=== PATIENT | male | born 1950 | race Caucasian/White ===

== ENCOUNTER 2016-10-07 13:16 | Day surgery (SDC) | payer MEDICARE ==
[~2016-10-07] VITALS: Ht 177.8 cm; Wt 82.0 kg
--- NOTE | 2016-10-07 07:32 | PCM.HPANE ---
Patient Data Surgeon Admitting Provider: Attending Provider:Brendon Nair MD Primary Care Physician:Catarina Canada MD Other Provider:Chas Acevedo Anesthesia Reason for Visit Screening, Hepatic Cirrhosis Ht/WT & BMI Body Mass Index Allergies Coded Allergies: WINIFRED Inhibitors (Verified Adverse Reaction, Unknown, cough, 07/21/15) Past Anesthesia History Anesthesia History: Denies:: Abnormal Airway, Anesthesia Reactions, Difficult Intubation, Fam Anesthesia Reaction, Malignant Hyperthermia Diabetes History Hx Diabetes?: Yes (Diet controlled DM) MRSA MRSA: No Medications Active Scripts Propranolol HCl 20 Mg Dqudpw33 Mg PO BID #60 TABLET Ref 0 Prov:Rosemarie Galindo MD 02/04/16 Rifaximin (Xifaxan)550 Mg Gzdasv688 Mg PO BID #60 TABLET Prov:Michelle Cary MD 05/05/14 Reported Medications Enoxaparin (Lovenox)40 Mg/0.4 Ml Uhjirrx17 Mg SUBQ DAILY Ref 0 10/06/16 Furosemide 40 Mg Tpmeou09 Mg PO DAILY 10/06/16 Magnesium Chloride (Mag64)64 Mg Tablet.er128 Mg PO DAILY 02/01/16 Ciprofloxacin Hcl (Cipro (eq) 500 MG-6 Tab Prepack)1 Pkg Pts186 Mg PO DAILY 02/01/16 Cholecalciferol (Vitamin D3) (Vitamin D3)5,000 Unit Tablet5,000 Unit PO DAILY 02/01/16 Dextran 70/Hypromellose/Pf (Artificial Tears Drops)1 Each Droperette1 Drop BOTH_ EYES TID PRN For Eye Irritation #1 BOTTLE 02/01/16 Multivitamin (Multi Vitamin Daily)1 Each Tablet1 Each PO DAILY 30 Days Ref 0 07/22/15 Tacrolimus (Prograf)0.5 Mg Capsule0.5 Mg PO BID 04/22/14 Discontinued Reported Medications Omeprazole 20 Mg Capsule.dr20 Mg PO BID Ref 0 10/06/16 Omeprazole 20 Mg Capsule.dr20 Mg PO DAILY Ref 0 07/22/15 Insulin Glargine (Lantus U100 Insulin Vial)100 Unit/Ml Vial24 Unit SUBQ HS 07/22/15 Discontinued Scripts Enoxaparin (Lovenox)80 Mg/0.8 Ml [place]55 Mg SUBQ BID 7 Days Ref 0 Prov:Rosemarie Galindo MD 02/04/16 oxyCODONE 10 Mg Yznuog24 Mg PO Q4-6H PRN For Pain #10 TABLET Ref 0 Prov:Rosemarie Galindo MD 02/04/16 Lactulose 10 Gm/15 Ml Xtxmfwci86-61 Ml PO QID 1 Day Ref 0 Prov:Rosemarie Galindo MD 02/04/16 History History of ENT Problems?: No HEENT History: Denies:: Abnormal Airway Cataracts Difficult Intubation Dysphagia Hearing Problem Sinus Problem Hx of Heart Problems?: Yes Cardiovascular History: Positive for:: Hypertension Denies:: AICD Atrial Fibrillation Cardiac Surgery Chest Pain Congestive Heart Failure Edema Heart Murmur Irregular Heartbeat Pacemaker Thrombophlebitis Valvular Heart Disease Hx of Respiratory Problem?: Yes Respiratory History: Positive for:: Cough Dyspnea (chronic pleural effusion) Denies:: Asthma COPD Chest Surgery Emphysema Hemoptysis Pneumonia Tuberculosis Hx Neurologic Problems?: No Neurological History: Denies:: Alzheimer's Disease CVA Dementia Dizziness Headaches Parkinson's Disease Seizures Hx of GI Problems?: Yes Gastrointestinal History: Positive for:: Cirrhosis Gastrointestinal Bleeding Hepatitis (hep c just finished [facility]) Rectal Bleeding (Hemorrhoid) Denies:: Diverticulitis Gastroesphageal Reflux Heartburn Hiatal Hernia Hx of Problems?: Yes Genitourinary History: Denies:: HX of Hemodialysis Kidney Stones Urinary Tract Infection HX of Peritoneal Dialysis: No Male Hx: Denies:: Prostate Problems Scrotal Mass Testicular Surgery Hx Musculoskeletal Problems?: Yes Musculoskeletal History: Positive for:: Back Injury (Chronic back pain) Denies:: Joint Replacement Musculoskeletal Trauma Hx of Psycho/Social Problems?: No Psycho Social History: Denies:: Anxiety Bipolar Disorder Hx Depression Suicide Attempt Hx Surgeries?: Yes (Liver transplant, Carpal tunnel) Hx Any Other Health Problems?: Yes Other History: Positive for:: Cancer (Liver cancer) Endocrine Disease Hospitalization (at earlier this week. ) Denies:: Thyroid Disease History Blood Transfusions: Positive for:: Blood Transfusions Denies:: Blood Transfuse Reaction Hx Diabetes: Yes (Diet controlled DM) Hx Alcohol Use: NoHx Substance Use: No Smoking Status: Former Smoker Have You Smoked inLast 12 mo: No Stop/Bang Risk Assessment Category Category 1A: Patient has history of documented sleep apnea, and HAS NOT received any narcotic, sedative or anesthesia administration during this stay. Category 1B: Patient has history of documented sleep apnea, and HAS received any narcotic , sedative or anesthesia administration during this stay Category 2: Patient has SUSPECTED Obstructive Sleep Apnea, and HAS received any narcotic , sedative or anesthesia administration during this stay. Category 3: Patient has SUSPECTED Obstructive Sleep Apnea and HAS NOT received narcotic, sedative or anesthesia administration during this stay. Category 4: Outpatient in Procedural Areas with known sleep apnea or who screen positive for High Risk via the STOP/BANG questionnaire. Exam Exam General Appearance: Alert, Oriented X3, Cooperative, No Acute Distress HEENT/AIRWAY: MP 2 Lungs: Normal Air Movement Heart: Regular Rate/Rhythm Plan Impression Patient chart reviewed, patient interviewed and anesthestic plan with risks, benefits, and alternatives discussed, and informed consent obtained. NPO Status: 0000 02 february 2016 ASA Physical Status: ASA3 Severe Disease Anesthetic Plan: MAC Bene/Risks/Altern/Consents: Yes HP Complete Prior to Induction: Yes Candice Becker DO Oct 07, 2016 07:32
[~2016-10-07 13:16] MED LIST: CHOL500011 PO; CIPR-198 PO; DEXT1DRO8 BOTH_EYES; FURO40TA4 PO; INSU100V7 SUBQ; LOV40 SUBQ; LOV80 SUBQ; Lactated Ringer's 1,000 ML IV ONE; MAGN64TA7 PO; MULT-1018 PO; OMEP20CA11 PO; OXYC10TA8 PO; PROG PO; PROP20TA5 PO; RIFA550T3 PO
[2016-10-07] MEDS ORDERED: Propofol 10,000 mCg/mL 20 mL Inj ONE (13:17)
[2016-10-07] MEDS ORDERED: EPHEDrine/NS 5 mg/mL 5 mL Syringe ONE (13:17)
[2016-10-07 13:48] VITALS: BP 106/69; PULSE 71; RESP 16; O2SAT 96
[2016-10-07 14:54] VITALS: BP 87/57; PULSE 75; RESP 12; O2SAT 96
[2016-10-07 15:02] VITALS: BP 103/65; PULSE 74; RESP 16; O2SAT 97
--- NOTE | 2016-10-07 15:04 | PCM.ANEP1 ---
Post Anesthesia Phase 1 PACU Phase 1 Assessment Vital Signs Vital Signs Date Time Temp Pulse Resp B/P Pulse Ox O2 Delivery O2 Flow Rate FiO2 10/07/16 14:54 35.7 75 12 87/57 96 Room Air 10/07/16 13:48 36 71 16 106/69 96 Room Air Anesthetic Administered: MAC Level of Alertness: Sleepy, easy to arouse TRENT's with Equal Strength: Yes Pain: No Nausea or Vomiting: No Oxygen Delivery: Room Air Lungs: Normal Air Movement Candice Becker DO Oct 07, 2016 15:04
--- NOTE | 2016-10-07 15:05 | PCM.ANEP2 ---
Post Anesthesia Evaluation ASA/CMS Post Anesthesia VS in Patient's Normal Range?: Yes Resp Stable; Airway Patent?: Yes CV Function & Hydration Stable: Yes Mental Status Recovered?: Yes Pain control Satisfactory?: Yes N/V Control Satisfactory?: Yes Candice Becker DO Oct 07, 2016 15:05
[2016-10-07 15:21] VITALS: BP 103/65; PULSE 77; RESP 16; O2SAT 95
--- NOTE | 2016-10-07 16:36 | ENDO ---
[address] [address] ENDOSCOPY PROCEDURE PATIENT: HIGINIO RECINOS : 1950 MR#: [id number] ADMIT: 10/07/2016 JOB ID: [id number] PRIMARY PROVIDER: Hung Soler MD PROCEDURE: Esophagogastroduodenoscopy and a colonoscopy with hot snare polypectomy and hot forceps polypectomy, along with cold snare polypectomy. INDICATION: A 66-year-old male with a history of orthotopic liver transplantation. Successful eradication of hepatitis C but unfortunate recurrence of cirrhosis in his transplanted liver. He experiences challenges with recurrent hepatic hydrothorax requiring thoracentesis. He presents today for updated variceal screening and colon polyp surveillance. EQUIPMENT: GIF-H180J and a PCF-H180AL. SEDATION: Monitored anesthesia as provided by Dr. Candice Becker. BOWEL PREPARATION: Fair, adequate exam. COMPLICATIONS: None identified. PROCEDURE INFORMATION: After the risks and benefits were explained, written and verbal informed consent was obtained. The patient was brought into the endoscopy suite and placed into the left lateral decubitus position. Sedation was achieved using the above-stated medications with the addition of oxygen via nasal cannula. The scope was introduced into the mouth through the bite block and advanced under direct visualization to the second portion of the duodenum. The scope was slowly withdrawn to carefully examine the mucosa for any defects or lesions. Retroflexed views were accomplished in the stomach, the stomach was decompressed, and the scope removed from the patient, tolerated the procedure well. The patient was then turned around and a digital rectal examination accomplished. Moderate internal hemorrhoids were noted. The scope was introduced into the rectum and advanced under direct visualization to the level of the cecum, as identified by the appendiceal orifice and ileocecal valve. The scope was slowly withdrawn to carefully examine the mucosa for any defects or lesions. Multiple direct views were made through the dentate line for exclusion of pathology. The colon was decompressed and the scope removed from the patient, who tolerated the procedure well. FINDINGS: 1. Duodenum: There was scattered nodularity all throughout the duodenum but these did not appear to be adenomatous and I elected to not pursue any biopsies at this time. No ulcers. No mass lesions. Diffuse mild erythema all throughout the duodenum. 2. Stomach: Obvious portal hypertensive gastropathy seen throughout. No focal mass lesions. No ulcers. No outlet obstruction. Retroflexed views of the LES were unremarkable. No gastric varices seen. 3. Esophagus: The squamocolumnar junction correlated with the top of the gastric folds. The GEJ was at about 40 cm from the incisors. The patient had evidence of at least grade 1 and in some places maybe grade 2 distal esophageal varices, without stigmata of recent bleeding or high risk pathology. The proximal esophagus was devoid of any variceal cushions. 4. Colon: Seven polyps were seen and removed from the mid and right colon. There was one very small one perhaps 3 mm that was inadvertently removed with cold snare. There were then five polyps removed with hot snare. The largest was perhaps about 6 mm in size. There was one other small polyp perhaps 2-3 mm removed with hot forceps. These were submitted as "colon polyps." ENDOSCOPIC DIAGNOSIS: 1. Small distal esophageal varices. 2. Portal hypertensive gastropathy. 3. Duodenal scattered benign-appearing nodularity. 4. Multiple colon polyps. 5. Moderate internal hemorrhoids (not mentioned above). 6. Impressive rectal venous plexus (not mentioned above). RECOMMENDATIONS: 1. Await histopathology. 2. I think it would be ideal to hold off on restarting Lovenox until tomorrow morning. 3. Repeat EGD with anesthesia in one year. 4. Repeat colonoscopy with anesthesia in three years.
--- NOTE | 2016-10-09 13:13 | PATH ---
SURGICAL PATHOLOGY Attending Physician:Eliecer Christine CASE STATUS: Signed Out PATIENT NAME: HIGINIO RECINOS PID: [id number] : 1950 DATE COLLECTED:10/07/2016 00:00 SPECIMEN: Colon, Biopsy CLINICAL HISTORY: 1). COLON POLYPS X7 FINAL DIAGNOSIS: 1.COLON POLYPS: TUBULAR ADENOMA INVOLVING FIVE BIOPSY FRAGMENTS. HYPERPLASTIC POLYP INVOLVING SINGLE BIOPSY FRAGMENT. ICD10 CODE D12.6 GROSS DESCRIPTION: The specimen is received in one formalin filled container labeled with the patient's name, sublabeled "colon polyps x7" and consists of multiple portions of tissue which aggregate to 0.4 x 0.4 x 0.2 CM. The specimen is entirely submitted in one cassette. 10/08/2016 [facility] MICRO DESCRIPTION: See diagnosis. ICD-9 CODES: CPT CODES: 1: 58499 Electronically Signed Out Brendon Engle MD [facility] Pathology [facility] [address], [place] [address] Technical component performed at [facility], [facility] [address], [place], [address]
[2016-12-01] MEDS ORDERED: OXYC5CAP4 PO (07:22)
[2016-12-01] MEDS ORDERED: FERR-83 PO (07:22)
[2016-12-01] MEDS ORDERED: PROP10TA8 PO (07:22)
== END 2016-10-07 23:59 | disposition home or self-care (01) ==
LOC: END 13:16
PROVIDERS: ATTEND Internal Medicine Gastroenterology
DX: Z12.11 Encounter for screening for malignant neoplasm of colon (principal); D12.6 Benign neoplasm of colon, unspecified; K74.60 Unspecified cirrhosis of liver; I85.10 Secondary esophageal varices without bleeding; Z94.4 Liver transplant status; K76.6 Portal hypertension; K64.8 Other hemorrhoids; Z79.899 Other long term (current) drug therapy

== ENCOUNTER 2017-04-14 21:28 | Emergency (ER) | payer MEDICARE ==
[~2017-04-14 21:28] MED LIST changes: +FERR-83 PO; -INSU100V7 SUBQ; -LOV80 SUBQ; -Lactated Ringer's 1,000 ML IV ONE; -OMEP20CA11 PO; -OXYC10TA8 PO; +OXYC5CAP4 PO; +PROP10TA8 PO; -PROP20TA5 PO
[2017-04-14 21:40] VITALS: BP 136/82; PULSE 60; RESP 16; O2SAT 99
--- NOTE | 2017-04-15 00:06 | ED.REPORT ---
HPI-Trauma Multiple Date of Service Apr 15, 2017 ED Provider: Allen Zheng MD The patient is a 67 year old male with a history of hepatocellular carcinoma s/ p liver transplant (2008), portal hyperension, chronic ascites, recurrent pleural effusions, hypertension, GI bleed secondary to esophageal varices, hepatitis C, and chronic anemia who presents to the ED with left shoulder pain secondary to a GLF that occurred just prior to arrival. The patient was reportedly in his garden when he tripped and fell into the dirt onto his left side. He admits to hitting his head on a brick that was displaced upon impact. The pain and swelling in his arm has become increasingly worse since onset. He denies LOC or vomiting following the injury. He did not strike his abdomen and he denies any abdominal pain. Patient denies numbness or weakness in his left arm. All immunizations are up to date including tetanus. Nursing Notes Stated Complaint: HURT SHOULDER Chief Complaint: Extremity Trauma Nursing Notes Reviewed: Yes Allergies: Coded Allergies: WINIFRED Inhibitors (Verified Adverse Reaction, Unknown, cough, 04/14/17) TAPE (Verified Adverse Reaction, Unknown, 04/14/17) Scheduled Cholecalciferol (Vitamin D3) (Vitamin D3) 5,000 Unit Tablet 5,000 UNIT PO DAILY Ciprofloxacin Hcl (Cipro (eq) 500 MG-6 Tab Prepack) 1 Pkg Pkg 500 MG PO DAILY Enoxaparin (Lovenox) 40 Mg/0.4 Ml Syringe 40 MG SUBQ DAILY Ferrous Sulfate (Ferrous Sulfate) 325 Mg Tablet 325 MG PO DAILY Furosemide (Furosemide) 40 Mg Tablet 20 MG PO DAILY Magnesium Chloride (Mag64) 64 Mg Tablet.er 128 MG PO DAILY Multivitamin (Multi Vitamin Daily) 1 Each Tablet 1 EACH PO DAILY Propranolol HCl (Propranolol HCl) 10 Mg Tablet 10 MG PO BID Rifaximin (Xifaxan) 550 Mg Tablet 550 MG PO BID Tacrolimus (Prograf) 0.5 Mg Capsule 0.5 MG PO BID Scheduled PRN Dextran 70/Hypromellose/Pf (Artificial Tears Drops) 1 Each Droperette 1 DROP BOTH_EYES TID PRN PRN For Eye Irritation oxyCODONE (oxyCODONE) 5 Mg Capsule 10 MG PO Q4H PRN PRN For Pain General Time Seen by Provider: 00:00 Chief Complaint Extremity pain/injury (L shoulder pain) Hx Obtained From: Patient Arrived By: Walk-in Onset Occurred: Just prior to arrival Symptom Duration: Since onset Progression Since Onset: Unchanged Caused by: Fall from (ground) Location: : Head: Shoulder right Quality: Painful Severity: Current: Moderate Severity: Maximum: Moderate Associated with: Reports: Fatigue, Denies: Loss of consciousness..., Nausea, Numb extremity, Vomiting Pertinent Negative: Pt denies other symptoms Immunizations: All up to date, Tetanus up to date Recent Healthcare: No recent hospitalization, Recent doctor visit Past Medical History Past Medical History 1. Portal hypotension. 2. Chronic ascites. 3. Acute on chronic anemia. 4. Recent GI bleed secondary to esophageal varices. 5. Hypertension. 6. Hepatitis C. 7. Hepatocellular carcinoma treated by liver transplant 2008 at [facility]. 8. Chronic back pain. 9. Chronic cough. 10. Thrombocytopenia likely due to portal hypertension. 11. Gastroesophageal reflux disease. 12. Type 2 diabetes mellitus, diet controlled. 13. History of hepatic vein thrombosis. 14. History of biliary tract stenosis which then produced Enterococcus bacteremia. The stent was removed. 15. Lower GI bleeding due to internal hemorrhoids. 16. History of pleural effusions. 17. 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 Cholecystectomy. 2. Esophageal varices banding. 3. Liver transplant 2008. 4. PTCA for 2 hepatic artery stenoses. Family History Positive for heart disease. Smoking History Former Smoker Social History Patient quit drinking after his transplant in 2008. He is a former smoker with less than 30 pack year history. He is and lives at home with . Alcohol Use: Denies alcohol use Drug Use: Denies drug use Other Social History: Good social support, , Local resident Ambulatory Status Independent Review of Systems GI: Denies: Vomiting Musculoskeletal: Reports: Joint pain (Left shoulder pain), Joint swelling ( Left shoulder swelling) Neurologic: Reports: Headache, Denies: Change LOC, Numbness Complete sys rev & neg: except as marked. Physical Exam Initial Vital Signs Vital Signs (First) Date Time Temp Pulse Resp B/P Pulse Ox O2 Delivery O2 Flow Rate FiO2 04/14/17 21:40 36.5 60 16 136/82 99 Room Air Initial VS: Reviewed Skin: Warm, Dry, No cyanosis Psychiatric: Mood/affect normal, Behavior normal, Normal thought content General/Constitutional: Awake, Alert, No acute distress, Well appearing, Well developed Head / Eyes: Normocephalic, PERRL Trauma - General: Positive: Laceration (Superficial laceration to the parietal region of the scalp) Trauma - Eye Specific: Negative: Skull deformity (no palpable deformity) Neck: Atraumatic, Supple, Full range of motion, Non-tender, No midline vertebral tend Respiratory / Chest: Atraumatic, Breath sounds NL, Breath sounds = bilat, No respiratory distress Cardiovascular: Heart rate NL, Regular rhythm, Heart sounds NL, No gallop, No murmurs, No rubs, Cap refill not delayed, Peripheral circulation NL, Pulses = bilaterally Abdomen: Atraumatic, Soft Organomegaly / Mass / Hernia: Positive: Hernia is reducible, Hernia umbilical ( Umbillical and hiatal hernia present - still reducible) ABDOMEN: Chronic ascetics present Liver transplant scar presnt in the RUQ Back: Atraumatic, Inspection NL, Non-tender, No midline vertebral tend Neurologic: Oriented X3, Speech NL, No motor deficits, No sensory deficits, CN II - XII intact, Reflexes equal bilat, Cerebellar NL, Memory NL Upper Extremity / MS: Atraumatic, Neurologic intact, Vascular intact Upper Ext Brief Normals: Shoulder R exam normal Left Shoulder: Positive: Swelling present..., Tenderness present... UPPER EXTREMITIES: Sensation intact in biateral upper extremities Good radial pulses present No signs of left shoulder dislocation Lower Extremity / Pelvis / MS: Atraumatic, Inspection NL, Non-tender, Neurologic intact, Vascular intact LOWER EXTREMITIES: No calf swelling or tenderness Interpretation & Diagnostics X-Ray Interpretation Xray Interpretation: IMPRESSION: Humeral head fracture without signs of dislocation. X-Ray Ordered: Humerus left Interpretation / Wet Read by: Wet read ED physician CT Head Interpretation IMPRESSION: No acute intracranial abnormalities Study: Head CT no contrast Interpretation / Wet Read by: Interpret - Radiologist (Nightshift) Procedures Splint Application - Fx Mgt Time: 00:58 Procedure Performed by: Laminating Machine Operator Helper Precise Anatomic Location: Left humeral head Type of Immobilization: Sling Definitive Fracture Care: Splint Post-Procedure / Complications: Cap refill normal, Post splint vascular nl, Post splint neuro nl, Condition improved, Tolerated procedure well, Patient stable Splint Post-Applic Eval Extremity Condition: Cap refill 2 sec, Distal sensation intact, Distal motor Intact, No compartment syndrome Re-Eval/Medical Decision Med Decision/Clinical Course The patient is a 67 year old male with a history of hepatocellular carcinoma s/ p liver transplant (2008), portal hyperension, chronic ascites, recurrent pleural effusions, hypertension, GI bleed secondary to esophageal varices, hepatitis C, and chronic anemia who presents to the ED with left shoulder pain secondary to a GLF that occurred just prior to arrival. The patient was reportedly in his garden when he tripped and fell into the dirt onto his left side. He admits to hitting his head on a brick that was displaced upon impact. The pain and swelling in his arm has become increasingly worse since onset. He denies LOC or vomiting following the injury. He did not strike his abdomen and he denies any abdominal pain. Patient denies numbness or weakness in his left arm. All immunizations are up to date including tetanus. Here in the emergency department the patient is alert/awake with examination as above. He has obvious injury of his left shoulder however he is neurovascularly intact in the affected extremity. He has a superficial laceration to his right scalp that is closed with no active bleeding or evidence of skull fracture. Humerus X-ray Left Humeral head fracture without evidence of dislocation CT No acute intracranial abnormalities The patient is relatively at high risk for bleeding due to his underlying liver disease. That being said there is no evidence of intracranial hemorrhage. Remainder of full head to toe survey reveals no other associated injuries. Scalp laceration is superficial, not bleeding and dressings are then placed. No sutures are indicated at this time. In regards to the patient's humeral head fracture I see no evidence of dislocation and is neurovascularly intact distally. He has received hydromorphone for pain and has been placed in a sling with referral to orthopedic surgery. At this time he remains stable and in no apparent distress and I feel that he is appropriate for discharge. He has chronic ascites however examination of his abdomen reveals no evidence of acute traumatic injury and I do not feel that imaging studies are immediately indicated. Prior to discharge follow-up and return precautions were reviewed in detail with the patient who verbalized understanding and agreement with the plan. The patient was discharged in stable condition. Re-Evaluation/Progress : Time of Eval: 00:58 Patient Status: Condition improved Re-Evaluation/Progress Note: Patient condition is re-evaluated. Splint is applied. Pt tolerates well. He is informed of his current and pending results. All questions about the intended treatment plan are addressed. Patient understands and agrees with the plan. Counseled Regarding: Diagnosis, Lab results, Need for follow-up, When/why to return to ED Discharge & Departure Impression: Primary Impression: Humeral head fracture Encounter type: initial encounter Fracture type: closed Laterality: left Qualified Code: S42.292A - Other displaced fracture of upper end of left humerus, initial encounter for closed fracture Additional Impressions: Head injury Encounter type: initial encounter Qualified Code: S09.90XA - Unspecified injury of head, initial encounter Scalp laceration Encounter type: initial encounter Qualified Code: S01.01XA - Laceration without foreign body of scalp, initial encounter Fall from ground level History of liver transplant Ascites Ascites type: other type Qualified Code: R18.8 - Other ascites Disposition: Home Discharge Condition All VS Reviewed: Yes Condition: Improved Patient Instructions: Head Injury (ED), Laceration (ED), Proximal Humerus Fracture (ED) Additional Instructions: Thank you for seeking care at emergency room. Your X-ray revealed a humeral head fracture and this will require orthopedic follow up. Your CT scan is reassuring at this time. Our primary goal today in the ED was to evaluate you for any life-threatening conditions. Your evaluation was reassuring. You will be discharged with a prescription for Oxycodone. Please take as directed. You have been prescribed a narcotic for pain relief. These drugs are usually combined with acetaminophen (Tylenol#3, Percocet, Darvocet, Anexsia, Vicodin) or aspirin (Empirin#3, Percodan, Synalogs-DC) for increased effect. Narcotics act on the central nervous system to reduce pain; they also impair mental alertness and physical abilities. We advise you not to drink alcohol, drive a car, or operate dangerous equipment when you are taking theses drugs. You can lessen stomach irritation from your medicine by taking it with meals or a full glass of water. Common side effects of narcotics are: Nausea and vomiting, heartburn, consitpation, dizziness, sleepiness, and mood changes. If you have bothersome side effects or symptoms of an allergic reaction (itching, hives, rash), stop taking your medicine and call your doctor or the emergency room right away. Please keep your narcotic medicine well out of the reach of children. Follow up the with referred orthopedist in the next 1-2 days for further evaluation. You should follow-up with your primary doctor in the next week. You should return to the ED immediately if you develop headache, confusion, vomiting, numbness to the arm, discoloration, worsening pain or any other concerning signs or symptoms. Thank you for letting us partake in your care today. Referrals: Hung Soler MD (PCP) Blake Warren MDibe Attestation Portions of this note were transcribed by Cooper Gnuter. I, Dr. Zheng, personally performed the history, physical exam and medical decision-making; I reviewed and confirmed the accuracy of the information in the transcribed note. Signed by: Cooper Gunter, 04/15/17. copies to: Hung Soler MD, Beck O MD Apr 15, 2017 00:06 COOPER GUNTER Apr 15, 2017 00:13
[2017-04-15] MEDS ORDERED: _oxyCODONE/APAP 5-325 mg Tablet PO PRN (00:10)
[2017-04-15] MEDS ORDERED: HYDROmorphone 1 mg/mL Inj IM ONE (00:10)
[2017-04-15] MEDS ORDERED: HYDROmorphone 0.5 mg/0.5 mL iSecure Syringe IM ONE (00:20)
[2017-04-15 01:55] VITALS: PULSE 67; O2SAT 99
--- NOTE | 2017-04-15 08:17 | DRSVH ---
PROCEDURE: CT BRAIN WITHOUT CONTRAST ([id number]) INDICATIONS: trauma TECHNIQUE: Noncontrast 4.5 mm thick angled axial sections acquired from the foramen magnum to the vertex, with c oronal reformats. COMPARISON: None. FINDINGS: Image quality: Excellent. CSF spaces: Basal cisterns are patent. No extra-axial fluid collections. The ventricles are symmet eri in size and shape. Brain: No intracranial bleeds or masses. There is cerebral volume loss for age, with resultant vent ricular and sulcal prominence. There are periventricular and deep white matter chronic small vessel ischemic changes. There is intracranial internal carotid artery and vertebral artery atherosclerosis . Skull and face: Calvarium and visualized facial bones appear intact, without suspicious lesions. Min imal right frontal and right parietal scalp swelling noted. Sinuses: Visualized sinuses and mastoids are clear. IMPRESSION: No acute intracranial disease process. Dictated by: Laura Kee MD, PhD on 04/15/2017 at 8:14 Approved by: Laura Kee MD, PhD on 04/15/2017 at 8:15
--- NOTE | 2017-04-15 20:05 | DRSVH ---
PROCEDURE: X-RAY LEFT SHOULDER, MINIMUM TWO VIEWS ([id number]) INDICATIONS: deformity TECHNIQUE: 3 views of the shoulder were acquired. COMPARISON: None. FINDINGS: Bones: Mildly comminuted, impacted left humeral head/neck fracture present. Mild inferior subluxatio n of the humeral head. Mild joint narrowing with periarticular osteophyte formation. Soft tissues: No suspicious soft tissue calcifications. IMPRESSION: 1. Comminuted, mildly impacted left humeral head/neck fracture with inferior migration of the humeral head suggestive of glenohumeral joint effusion. Dictated by: Noman RODRIGUEZ Interpreted: Avelina Yost MD on 04/15/2017 at 9:44 Approved by: Avelina Yost M.D. on 04/15/2017 at 20:04
== END 2017-04-15 01:57 | disposition home or self-care (01) ==
LOC: SED 21:28
DX: S42.202A Unspecified fracture of upper end of left humerus, initial encounter for closed fracture (principal); S01.01XA Laceration without foreign body of scalp, initial encounter; S09.8XXA Other specified injuries of head, initial encounter; R18.8 Other ascites; W01.198A Fall on same level from slipping, tripping and stumbling with subsequent striking against other object, initial encounter; Y93.89 Activity, other specified; Y92.007 Garden or yard of unspecified non-institutional (private) residence as the place of occurrence of the external cause; Y99.8 Other external cause status; Z79.01 Long term (current) use of anticoagulants; Z94.4 Liver transplant status; I10 Essential (primary) hypertension; E11.9 Type 2 diabetes mellitus without complications; K21.9 Gastro-esophageal reflux disease without esophagitis; Z87.891 Personal history of nicotine dependence
CPT/HCPCS: 29105; 70450; 73030; 96372; 99284; J1170